=== PATIENT | female | born 1990 | race Native Hawaiian/Other Pacific Islander ===

== ENCOUNTER 2021-07-08 14:14 | Outpatient (CLI) | payer BC ==
[2021-07-08 15:19] LABS: BASOPHILS % (AUTO) 0.1 %; EOSINOPHILS # (AUTO) 0.2 10^3/uL (0.0-0.7); EOSINOPHILS % (AUTO) 1.6 %; HCT - HEMATOCRIT 37.1 % (37.0-47.0); HGB - HEMOGLOBIN 13.1 g/dL (12.0-16.0); LYMPHOCYTES % (AUTO) 17.4 %; MEAN CORPUSCULAR HEMOGLOBIN 31.7 pg (27.0-31.0); MEAN CORPUSCULAR HGB CONC 35.3 g/dL (32.0-36.0); MEAN CORPUSCULAR VOLUME 89.8 fL (81.0-99.0); MEAN PLATELET VOLUME 9.8 fL (7.9-10.8); MONOCYTES # (AUTO) 0.6 10^3/uL (0.0-1.0); MONOCYTES % (AUTO) 4.8 %; NEUTROPHILS # (AUTO) 8.9 10^3/uL (1.5-6.6); NEUTROPHILS % (AUTO) 75.8 %; PLT - PLATELET COUNT 286 10^3/uL (130-450); RED BLOOD COUNT 4.13 10^6/uL (4.20-5.40); RED CELL DISTRIBUTION WIDTH 11.5 % (12.0-15.0); WHITE BLOOD COUNT 11.8 x10^3/uL (4.8-10.8)
[2021-07-08 15:45] LABS: BILIRUBIN,URINE NEGATIVE (NEGATIVE); GLUCOSE, URINE (UA) NEGATIVE (NEGATIVE); KETONES,URINE (UA) NEGATIVE (NEGATIVE); LEUKOCYTE ESTERASE, URINE NEGATIVE (NEGATIVE); NITRITE,URINE NEGATIVE (NEGATIVE); OCCULT BLOOD,URINE SMALL (NEGATIVE); PH,URINE 6.5 PH (5.0-7.5); PROTEIN,URINE NEGATIVE (NEGATIVE); UROBILINOGEN,URINE 0.2 (NORMAL) E.U./dL (NORMAL)
--- NOTE | 2021-07-08 16:56 | Ultrasound Report ---
PROCEDURE: OB First Trimester INDICATIONS: POSITIVE TEST, DATING- UNKNOWN LMP OUTSIDE/PRIOR DATING DATA: Last menstrual period (LMP): Unknown. LMP-based estimated date of delivery (LOURDES): Not applicable. First dating scan (date and location): 07/08/2021. Estimated date of delivery (LOURDES) from first dating scan: 01/22/2022. TECHNIQUE: Real-time scanning was performed of the fetus and maternal pelvic organs, with image documentation. COMPARISON: None FINDINGS: A single living intrauterine gestation is present with a crown-rump length of 49 mm, corresponding to an 11 week 5 day gestation. heart rate is 164 bpm. Presentation is anterior. Measurement variability in dating: +/- 4 weeks by LMP, +/- 7 days by mean sac diameter (use before 6 weeks gestation if crown-rump length not able to be measured), +/- 5 days by crown-rump length (6-12 weeks gestation). Maternal organs: Ovaries grossly unremarkable. IMPRESSION: Single living intrauterine gestation. Reviewed by: Cathleen Ann MD on 07/08/2021 4:55 PM PST Approved by: Cathleen Ann MD on 07/08/2021 4:55 PM PST Station ID: [id number]
[2021-07-08 17:28] LABS: BACTERIA,URINE None Seen /HPF (None Seen); CLARITY,URINE CLEAR (CLEAR); RBC,URINE 0-5 /HPF (0-5); SQUAMOUS EPITHELIAL CELL,UR RARE Squamous (<= Few); WBC,URINE 0-3 /HPF (0-5)
[2021-07-09 10:16] LABS: HEPATITIS C ANTIBODY NON-REACTIVE (NON-REACTIVE)
[2021-07-09 12:21] LABS: HEPATITIS B SURFACE ANTIGEN NON-REACTIVE (NON-REACTIVE)
[2021-07-09 13:36] LABS: HIV AG/AB 4TH GEN NON-REACTIVE (NON-REACTIVE)
== END 2021-07-08 14:15 | disposition home or self-care (01) ==
LOC: DI 14:14
PROVIDERS: ATTEND Obstetrics & Gynecology
DX: Z32.01 Encounter for pregnancy test, result positive (principal); Z36.89 Encounter for other specified antenatal screening
CPT/HCPCS: 36415; 81001; 85025; 86592; 86762; 86787; 86803; 86850; 86900; 86901; 87086; 87340; 87389

== ENCOUNTER 2021-07-21 08:00 | Outpatient (CLI) | payer BC ==
[2021-07-22 21:49] LABS: CHLAMYDIA TRACHOMATIS DNA NEGATIVE (NEGATIVE); NEISSERIA GONORRHOEAE DNA NEGATIVE (NEGATIVE); TRICHOMONAS VAGINALIS DNA NEGATIVE (NEGATIVE)
== END 2021-07-21 23:59 | disposition home or self-care (01) ==
LOC: LAB.WC 08:00
PROVIDERS: ATTEND Obstetrics & Gynecology
DX: O09.90 Supervision of high risk pregnancy, unspecified, unspecified trimester (principal)
CPT/HCPCS: 87491; 87591; 87661

== ENCOUNTER 2021-08-13 13:45 | Outpatient (CLI) | payer BC ==
[2021-08-17 09:36] LABS: AFP MOM 0.84; AGE RISK DOWN SYNDROME 1 IN 546; CALC'D GESTATIONAL AGE 16.9 weeks; CIGARETTE SMOKER? NOT GIVEN; DONOR AGE: EGG RETRIEVAL NOT GIVEN; DONOR EGG NO; EDD DETERMINED BY ULTRASOUND; ESTRIOL MOM 1.02; HCG MOM 1.97; HX OF NEURAL TUBE DEFECTS NO; INHIBIN A MOM 1.01; INSULIN DEPEND DIABETIC NO; MATERNAL WEIGHT 171 lbs; MSS DOWN SYNDROME RISK 1 IN 1677; MSS3 TRISOMY 18 RISK <1 IN 5000; NUMBER OF FETUSES 1; PREV PREGNANCY DOWN SYND NO; RISK FOR ONTD <1 IN 5000
== END 2021-08-13 13:46 | disposition home or self-care (01) ==
LOC: LAB 13:45
PROVIDERS: ATTEND Obstetrics & Gynecology
DX: O09.90 Supervision of high risk pregnancy, unspecified, unspecified trimester (principal)
CPT/HCPCS: 81511

== ENCOUNTER 2021-09-07 12:35 | Outpatient (CLI) | payer BC, MEDICAID ==
--- NOTE | 2021-09-08 12:32 | Ultrasound Report ---
PROCEDURE: OB Detailed Eval INDICATIONS: SUPERVISION OF OUTSIDE/PRIOR DATING DATA: Last menstrual period (LMP): Mid-April. First dating scan (date and location): 07/08/2021. Estimated date of delivery (LOURDES) from first dating scan: 07/08/2021. The below data below was generated using the ultrasound LOURDES of 01/22/2022 TECHNIQUE: Real-time scanning was performed of the fetus, with image documentation and biometric measurements. COMPARISON: 07/08/2021 FINDINGS: General: A single living intrauterine gestation is present. Presentation: Variable Placenta: Placental position is anterior fundal, without previa. Amniotic fluid index: 12.8 cm, normal for gestational age. heart rate: 143 beats per minute. Maternal cervical canal: 5.2 cm long; normal length is 2.5 cm or more. However there is fluid in th e cervical canal. biometrics: Biparietal diameter: 4.54 cm. 19 weeks 5 days Head circumference: 19.09 cm. 19 weeks 5 days Abdominal circumference: 18.78 cm. 20 weeks 6 days. Femur length: 3.11 cm. 19 weeks 5 days. Estimated gestational age from initial scan: not applicable. Composite gestational age from present scan: 19 weeks 6 days Estimated weight and percentile: 341.6 g. 35.3% tile Maternal anatomy. A left corpus luteal cyst measures 16 x 14 x 15 mm. Measurement variability in biometric dating: +/- 10 days from 12-20 weeks gestation, +/- 2 weeks from 20-30 weeks gestation, +/- 3 weeks at 30 weeks gestation or later. Anatomic survey: Neuro: Ventricles are normal at less than 10 mm. Cisterna magna is normal at 3-11 mm. Cerebellum i s normal in size and morphology. Nuchal skin fold: Normal at less than 6 mm between 14 and 20 weeks gestational age. Face: Nose and lips, facial profile are normal. Spine: No evidence for spina bifida. Heart: 4-chambered heart is present, with normal ventricular outflow tracts. Diaphragm: Diaphragm is intact. Stomach: Left-sided stomach is present. Kidneys: No hydronephrosis. Normal is less than 5 mm in 2nd trimester, less than 7 mm in 3rd trimester. Cord: 3 vessel cord has orthotopic insertion. Bladder: Normal in size. Extremities: All 4 extremities are visualized. IMPRESSION: 1. Viable intrauterine with an ultrasound estimated gestational age of 19 weeks 6 days. 2. Fluid is seen in the cervical canal, concerning for incompetent cervix. 3. Echogenic focus in the left ventricle is nonspecific but can be seen with trisomy 21. Please corre late with other lab findings and biochemical markers. Reviewed by: Myron Kirby on 09/08/2021 12:31 PM PDT Approved by: Myron Kirby on 09/08/2021 12:31 PM PDT Station ID: [id number]
== END 2021-09-07 12:36 | disposition home or self-care (01) ==
LOC: DI 12:35
PROVIDERS: ATTEND Obstetrics & Gynecology
DX: O09.92 Supervision of high risk pregnancy, unspecified, second trimester (principal); Z36.89 Encounter for other specified antenatal screening; Z3A.19 19 weeks gestation of pregnancy

== ENCOUNTER 2021-10-30 10:01 | Outpatient (CLI) | payer MEDICAID ==
[2021-10-30 11:21] LABS: HCT - HEMATOCRIT 35.5 % (37.0-47.0); MEAN CORPUSCULAR HEMOGLOBIN 31.6 pg (27.0-31.0); MEAN CORPUSCULAR HGB CONC 33.8 g/dL (32.0-36.0); MEAN CORPUSCULAR VOLUME 93.4 fL (81.0-99.0); MEAN PLATELET VOLUME 8.9 fL (7.9-10.8); RED BLOOD COUNT 3.8 10^6/uL (4.20-5.40); RED CELL DISTRIBUTION WIDTH 12.2 % (12.0-15.0); WHITE BLOOD COUNT 9.8 x10^3/uL (4.8-10.8)
== END 2021-10-30 10:02 | disposition home or self-care (01) ==
LOC: LAB 10:01
PROVIDERS: ATTEND Obstetrics & Gynecology
DX: O09.92 Supervision of high risk pregnancy, unspecified, second trimester (principal)
CPT/HCPCS: 36415; 82950; 85027; 86850

== ENCOUNTER 2021-11-06 08:48 | Outpatient (CLI) | payer MEDICAID ==
[2021-11-06 09:31] LABS: GTT GLUCOSE,FASTING 83 mg/dL (70-100)
== END 2021-11-06 08:49 | disposition home or self-care (01) ==
LOC: LAB 08:48
PROVIDERS: ATTEND Obstetrics & Gynecology
DX: O99.810 Abnormal glucose complicating pregnancy (principal)
CPT/HCPCS: 36415; 82951; 82952

== ENCOUNTER 2021-12-21 08:51 | Outpatient (CLI) | payer MEDICAID ==
--- NOTE | 2021-12-21 16:34 | Ultrasound Report ---
PROCEDURE: OB F/U or Repeat INDICATIONS: GESTATIONAL DIABETES OUTSIDE/PRIOR DATING DATA: Last menstrual period (LMP): Unknown. LMP-based estimated date of delivery (LOURDES): Unknown. First dating scan (date and location): 07/08/2021. Estimated date of delivery (LOUR[facility]) from first dating scan: 01/22/2022. TECHNIQUE: Real-time scanning was performed of the fetus, with image documentation and biometric measurements. COMPARISON: 09/07/2021 FINDINGS: General: A single living intrauterine gestation is present. Presentation: Vertex Placenta: Placental position is anterior fundal, without previa. Amniotic fluid index: 18.1 cm, within normal limits for gestational age. Largest pocket 7.1 cm heart rate: 137 beats per minute. Maternal cervical canal: Not assessed biometrics: Biparietal diameter: 8.4 cm 33 weeks 6 days Head circumference: 31.1 cm 34 weeks 5 days Abdominal circumference: 33.3 cm 37 weeks 2 days Femur length: 6.6 cm 34 weeks 0 days Estimated gestational age from initial scan: 35 weeks 3 days Composite gestational age from present scan: 35 weeks 0 days Estimated weight and percentile: 2769 g 59th percentile Measurement variability in biometric dating: +/- 10 days from 12-20 weeks gestation, +/- 2 weeks from 20-30 weeks gestation, +/- 3 weeks at 30 weeks gestation or more. Other: Not applicable. IMPRESSION: Single live intrauterine with ultrasound gestational age today of 35 weeks 0 days. PRANAV is within normal limits. Reviewed by: Felicity Restrepo MD on 12/21/2021 4:33 PM PDT Approved by: Felicity Restrepo MD on 12/21/2021 4:33 PM PDT Station ID: [id number]
== END 2021-12-21 08:52 | disposition home or self-care (01) ==
LOC: DI 08:51
PROVIDERS: ATTEND Obstetrics & Gynecology
DX: O24.410 Gestational diabetes mellitus in pregnancy, diet controlled (principal); Z3A.35 35 weeks gestation of pregnancy

== ENCOUNTER 2022-03-10 09:43 | Outpatient (CLI) | payer MEDICAID ==
[2022-03-10 10:11] LABS: GTT GLUCOSE,FASTING 93 mg/dL (70-100)
== END 2022-03-10 09:44 | disposition home or self-care (01) ==
LOC: LAB 09:43
PROVIDERS: ATTEND Obstetrics & Gynecology
DX: O24.414 Gestational diabetes mellitus in pregnancy, insulin controlled (principal)
CPT/HCPCS: 36415; 82951